=== PATIENT | male | born 1995 | race Hispanic/Latino ===

== ENCOUNTER 2019-09-13 18:20 | Emergency (ER) | payer MEDICAID, OTHER ==
[2019-09-13] MEDS ORDERED: ONDANSETRON ODT 4 MG TAB ONE (18:48)
[2019-09-13 19:15] LABS: RAPID GROUP A STREP NEGATIVE (NEGATIVE)
== END 2019-09-13 20:06 | disposition home or self-care (01) ==
LOC: EDH 18:20
DX: K52.89 Other specified noninfective gastroenteritis and colitis (principal); Z72.0 Tobacco use
CPT/HCPCS: 87804; 87880